=== PATIENT | female | born 1950 | race Caucasian/White ===

== ENCOUNTER 2018-10-18 18:36 | Inpatient (IN) | payer OTHER, MEDICARE ==
[~2018-10-18] VITALS: Ht 162.6 cm; Wt 106.1 kg
[2018-10-18 18:37] VITALS: BP 92/62
[2018-10-18] MEDS ORDERED: HYDROCHLOROTHIA25 M1 PO (18:42)
[2018-10-18] MEDS ORDERED: LISINOPRIL10 MG PO (18:42)
[2018-10-18] MEDS ORDERED: COZAAR 25 MG TA25 M1 PO (18:42)
[2018-10-18] MEDS ORDERED: SIMVASTATIN40 MG PO (18:42)
[2018-10-18 20:01] LABS: ABSOLUTE NEUTROPHILS 10.9 thou/uL (1.4-8.2); BASOPHILS 0.5 % (0.0-2.0); EOSINOPHILS 0.5 % (0.0-3.0); HEMATOCRIT 43.5 % (37.0-47.0); HEMOGLOBIN 14.6 gm/dL (12.0-15.0); LYMPHOCYTES 6.2 % (24.0-44.0); MCH 28.4 pg (26.0-34.0); MCHC 33.5 g/dL (28.0-37.0); MCV 84.8 fL (80.0-100.0); MONOCYTES 4.4 % (1.0-8.0); PLATELET COUNT 195 thou/uL (150-400); POLYS 88.4 % (36.0-66.0); RBC 5.13 mil/uL (4.20-5.00); RDW 14.8 % (10.5-14.5); WBC 12.3 thou/uL (4.0-11.0)
[2018-10-18 20:08] LABS: CALCIUM 9.3 mg/dL (8.5-10.1); CREATININE 0.9 mg/dL (0.6-1.0)
[2018-10-18 20:18] LABS: ALBUMIN 3.4 g/dL (3.4-5.0); TOTAL BILIRUBIN 0.4 mg/dL (<0.1-1.0); TOTAL PROTEIN 7.4 g/dL (6.4-8.2)
[2018-10-18 20:22] LABS: TROPONIN-I 3.01 ng/mL (<0.06)
[2018-10-19 00:25] VITALS: BP 138/81
[2018-10-19] MEDS ORDERED: COZAAR 25 MG TA25 M2 PO (02:07)
[2018-10-19] MEDS ORDERED: METOPROLOL SUC100 MG PO (02:09)
[2018-10-19] MEDS ORDERED: VITAMIN D31000 UNI2 PO (02:10)
[2018-10-19] MEDS ORDERED: CENTRUM SILVER1 EAC4 PO (02:13)
[2018-10-19 02:35] LABS: HEMATOCRIT 40.4 % (37.0-47.0); HEMOGLOBIN 13.5 gm/dL (12.0-15.0); MCH 28.1 pg (26.0-34.0); MCHC 33.3 g/dL (28.0-37.0); MCV 84.4 fL (80.0-100.0); RBC 4.79 mil/uL (4.20-5.00); RDW 14.7 % (10.5-14.5); WBC 10.7 thou/uL (4.0-11.0)
[2018-10-19 02:42] LABS: CALCIUM 8.8 mg/dL (8.5-10.1); CREATININE 0.9 mg/dL (0.6-1.0); MAGNESIUM 1.7 mg/dL (1.8-2.4); POTASSIUM 3.6 mmol/L (3.5-5.1)
[2018-10-19 04:09] VITALS: BP 130/76
--- NOTE | 2018-10-19 05:34 | NUR ---
ASSUMED CARE OF PATIENT FROM ER. PATIENT ABLE TO ANSWER ALL ORIENTATION QUESTIONS APPROPRIATELY. REMAINS NPO. EDUCATION GIVEN REGARDING CHEST PAIN AND ALERTING NURSING STAFF FOR NEW SIGNS/SYMPTOMS. NO DISTRESS NOTED. POC GOALS ESTABLISHED.
[2018-10-19 07:21] VITALS: BP 110/63
[2018-10-19 08:26] LABS: BE(vivo) 1.6 mmol/L (-2 to +3); HCO3 26.2 mmol/L (22.0-26.0); PCO2 41.3 mmHg (35.0-45.0); PO2 68.3 mmHg (80.0-100.0); pH 7.421 (7.360-7.450)
--- NOTE | 2018-10-19 08:48 | HC ---
[facility] [place] [address] [place] [address] CONSULTATION Name: JESSICA MARSH Room #: 364-P ADM IN M.R.#: [id number] Admission: 10/18/18 ������������������ Attend Phys: Nate Hopkins MD Discharge: ������������������ Date of : 50 Report #: [id number] THIS REPORT FOR: //name// CC: Nate Longoria MD SURGEON: Lopez Green MD REASON FOR CONSULTATION: Postoperative followup. HISTORY OF PRESENT ILLNESS: The patient is a 68-year-old female who underwent a nasal septoplasty, bilateral inferior turbinectomy, and transendoscopic sphenopalatine artery cauterization for control of chronic epistaxis, deviated septum, and nasal obstruction. The patient had been followed for this for several weeks despite aggressive treatment, both by Dr. Longoria, her primary care physician, and myself. This had persisted. Because of her persistent deviated septum, options of surgery were discussed. The patient moved to [place] from [place] 12 years ago. She had required cauterization in [place] at that time. The patient had uncomplicated surgery in the recovery room, she was noted to have difficulty holding her oxygen saturation. Dr. Rogers, the anesthesiologist had called me after my departure from the surgery center, while she was still in recovery room, stating that he was concerned with her desaturation off of oxygen. In discussion, he and I agreed that this should be further evaluated and the patient was referred to the Emergency Department at [facility]. She is currently in the Emergency Room, undergoing workup. I have talked with Rosita, her nurse practitioner. Our concern were the possibility of an early congestive heart failure. Just while talking, the patient was noted to have an elevated NT-ProBNP of 372, greater than its normal reference rate of 300. Recommendations have been made for admission via the Internal Medicine service and cardiac consultation. I have talked with the patient on the telephone. She is asymptomatic with no chest pain and no significant shortness of breath, but continues to desaturate off oxygen. 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 [address] [address] CONSULTATION Name: JESSICA MARSH Room #: 364-P ADM IN M.R.#: [id number] Admission: 10/18/18 ������������������ Attend Phys: Nate Hopkins MD Discharge: ������������������ Date of : 50 Report #: [id number] MEDICATIONS: Included mupirocin nasal ointment b.i.d., losartan 100 mg daily, hydrochlorothiazide 25 mg daily, vitamin D3, simvastatin 40 mg a day, Metamucil, Refresh Tears, multivitamin. The patient has been placed on amoxicillin 500 mg t.i.d. postoperatively as well as Phenergan suppository 25 mg p.r.n. for nausea and hydrocodone/acetaminophen 7.5/325 one to two q. 4-6 hours p.r.n. ALLERGIES: None. SOCIAL HISTORY: She is with supportive family. Alcohol use, she drinks liquor 6 times per year, having 1-6 drinks per occasion. She does not use caffeine. She has no illicit drug use. She is a former smoker, starting smoking in 1966, at age 16, quitting in 1980 at age 30. She no longer smokes. FAMILY HISTORY: Cancer, CVA, diabetes, and chronic lung disease. PHYSICAL EXAMINATION: VITAL SIGNS: In the Emergency Department showed a temperature of 97.9, pulse of 84, blood pressure 92/62, O2 sat is 96% on 2 liters oxygen, and respiration of 16. She is 220 pounds, 64 inches with a BMI of 37.76. HEENT: Normocephalic. Pupils equal, round, reactive to light. Nasal exam, postoperative changes of the nose. This evaluation was done in the immediate postoperative phase in the surgery center. No active bleeding. Oral cavity normal. NECK: Without adenopathy. NEUROLOGIC: Cranial nerves II through XII otherwise intact. LABORATORY DATA: I reviewed her testing that is available in this early Emergency Room evaluation, white count of 12,300 after IV steroids for surgery and hemoglobin of 14.6. Serum electrolytes are unremarkable, slightly elevated glucose of 108 and SGPT of 27. The patient's NT-proBNP was 372. Chest x-ray showed perihilar interstitial infiltrates, edema versus atypical infection. Normal heart size. ASSESSMENT: Postoperative hypoxemia. Differential diagnosis to include early congestive heart failure versus pneumonia versus aspiration. PLAN: Agree with plan for admission and further workup with elevated troponin, cardiac consultation. I have discussed the findings with the patient and her via telephone in the Emergency Department. I have discussed this with her nurse practitioner, Rosita in the Emergency Department. My partner, Dr. Ochoa will be on over the weekend and I have discussed her transfer to the Emergency Room with him. We will plan to follow along with you. ��������������������������������������������� <ELECTRONICALLY SIGNED> ���������������������������������������� By: Lopez Green MD ��������������������������������������������� 10/19/18 0848 34 0833 Lopez Green MD /nt
[2018-10-19 15:34] VITALS: BP 119/65
--- NOTE | 2018-10-19 15:41 | 2DMMODE ---
[facility] [address] [place] [address] 2 D/M-MODE ECHOCARDIOGRAM Name: JESSICA MARSH Room #: 364-P ADM IN M.R.#: [id number] ������������� Admission: 10/18/18 ������������� Attend Phys: Nate Hopkins MD Discharge: ��� ������������� ��� Date of : 50 Date of Service: 10/19/18 1541 �� Report #: [id number] �������� ��������������������������������������������[id number] THIS REPORT FOR: //name// APPROVED REPORT Study performed: 10/19/2018 11:03:53 EXAM: Comprehensive 2D, Doppler, and color-flow Echocardiogram Patient Location: Bedside Room #: 364 Status: on-call BSA: 2.09 HR: 88 bpm BP: 110/63 mmHg Rhythm: NSR Other Information Study Quality: Adequate Risk Factors: Cardiac Risk Factors: HTN, Hyperlipidemia Indications Syncope 2D Dimensions IVSd: 11.04 (7-11mm) LVOT Diam: 19.00 (18-24mm) LVDd: 48.06 mm PWd: 11.09 (7-11mm) Ascending Ao: 31.97 (22-36mm) LVDs: 34.76 (25-40mm) Aortic Root: 27.03 mm LV Single Plane 4CH: 56.37 % LV Single Plane 2CH: 55.05 % Biplane EF: 55.3 % Volumes Left Atrial Volume (Systole) Single Plane 4CH: 31.11 mL Single Plane 2CH: 33.95 mL LA ESV Index: 17.00 mL/m2 Aortic Valve AoV Peak Rasta.: 1.52 m/s AO Peak Gr.: 9.19 mmHg LVOT Max P.75 mmHg LVOT Max V: 1.09 m/s QUEENIE Vmax: 2.[address] [facility] [address] [address] 2 D/M-MODE ECHOCARDIOGRAM Name: JESSICA MARSH Room #: [facility] ADM IN .R.#: [id number] ������������� Admission: 10/18/18 ������������� Attend Phys: Nate Hopkins MD Discharge: ��� ������������� ��� Date of : 50 Date of Service: 10/19/18 1541 �� Report #: [id number] �������� ��������������������������������������������[id number] AI Vmax: 3.19 m/s AI Charles: 2.15 m/s2 AI PHT: 430.97 ms Mitral Valve E/A Ratio: 0.8 MV Decel. Time: 223.86 ms MV E Max Rasta.: 0.91 m/s MV A Rasta.: 1.10 m/s MV PHT: 64.92 ms IVRT: 86.51 ms TDI E/Lateral E': 13.00 E/Medial E': 9.10 Medial E' Rasta.: 0.10 m/s Lateral E' Rasta.: 0.07 m/s Pulmonary Valve PV Peak Rasta.: 0.94 m/s PV Peak Gr.: 3.53 mmHg Pulmonary Vein P Vein S: 0.65 m/s P Vein A: 0.29 m/s P Vein D: 0.43 m/s P Vein A Dur.: 83.0 msec P Vein S/D Ratio: 1.51 Tricuspid Valve RAP Estimate: 7.00 mmHg Left Ventricle The left ventricle is normal size. There is normal LV segmental wall motion. Borderline concentric left ventricular hypertrophy. Left ventricular systolic function is normal. The left ventricular ejection fraction is within the normal range. LVEF is 55-60%. Mild diastolic dysfunction is present (impaired relaxation pattern). Right Ventricle The right ventricle is normal size. The right ventricular systolic function is normal. Atria The left atrium size is normal. The right atrium size is normal. Aortic Valve The aortic valve is normal in structure. Mild aortic regurgitation. [facility] [address] [place] [address] 2 D/M-MODE ECHOCARDIOGRAM Name: JESSICA MARSH Room #: 364-P ADM IN M.R.#: [id number] ������������� Admission: 10/18/18 ������������� Attend Phys: Nate Hopkins MD Discharge: ��� ������������� ��� Date of : 50 Date of Service: 10/19/18 1541 �� Report #: [id number] �������� ��������������������������������������������[id number] There is no aortic valvular stenosis. Mitral Valve The mitral valve is normal in structure. Mild to moderate mitral regurgitation. No evidence of mitral valve stenosis. Tricuspid Valve The tricuspid valve is normal in structure. There is no tricuspid valve regurgitation noted. Pulmonic Valve The pulmonary valve is normal in structure. There is no pulmonic valvular regurgitation. Great Vessels The aortic root is normal in size. IVC is normal in size and collapses >50% with inspiration. Pericardium There is no pericardial effusion. <Conclusion> The left ventricle is normal size. LVEF is 55-60%. The aortic valve is normal in structure. Mild aortic regurgitation. The mitral valve is normal in structure. Mild to moderate mitral regurgitation. The tricuspid valve is normal in structure. The pulmonary valve is normal in structure. There is no pericardial effusion. ��������������������������������������������� <ELECTRONICALLY SIGNED> ���������������������������������������� By: Saul Veras MD ��������������������������������������������� 10/19/18 1541 1541 1541 Saul Veras MD /INF
--- NOTE | 2018-10-19 17:57 | NUR ---
ASSUMED PATIENT CARE AT 0700. A/O X4. CONFUSED SOMETIMES. UP WITH ASSISTED TO BATHROOM. NO COUGHT, VSS. SLOWLY TOWARDS POC GOALS.
[2018-10-19 19:10] VITALS: BP 102/54
[2018-10-20 04:18] VITALS: BP 134/69
--- NOTE | 2018-10-20 07:21 | NUR ---
RECEIVED REPORT AND ASSUMED PATIENT CARE AT 1900. PATIENT AAOX4 AND ON ROOM AIR. PATIENT NOTED TO HAVE DRIED BLOOD AROUND THE NOSTRILS. PATIENT AMBULATES WELL INDEPENDENTLY. HOURLY ROUNDING COMPLETED AND ASSESSMENTS CHARTED. NO ACUTE EVENTS OCCURRED DURING THIS SHIFT AND VS REMAINED STABLE.
[2018-10-20 07:27] VITALS: BP 134/82
[2018-10-20 12:09] VITALS: BP 162/97; BP 167/92
[2018-10-20 16:00] VITALS: BP 142/81
[2018-10-20 16:08] VITALS: BP 170/91
--- NOTE | 2018-10-20 18:35 | NUR ---
ASSUMED PATIENT CARE AT 0700.A/0 X4. NO NOSE BLEEDING NOTED. AMBULATED IN HALLWAY. WILL NPO AFTER MIDNIGHT TO HAVE HEART CATH IN AN. DENIES CHEST PAIN. PRIGRESSING TOWARDS POC GOALS.
--- NOTE | 2018-10-20 18:37 | EKG ---
[place] [address] [facility] [place] [address] ELECTROCARDIOGRAM REPORT Name: JESSICA AMRSH Room #: 364-P ADM IN M.R.#: [id number] ������������������ Admission: 10/18/18 ������������������ Attend Phys: Nate Hopkins MD Discharge: ������������������ Date of : 50 Report #: [id number] ����������������������������������������������������������������� [id number] THIS REPORT FOR: //name// [facility] ED Test Date: 2018-10-18 Test Time: 18:53:20 Pat Name: JESSICA MARSH Department: Patient ID: SJOMO- Room: Gender: F Relationship Banker: : 1950 Requested By: Adelfo Laurent Order Number: [id number] MD: Saul Veras Measurements Intervals [place] Rate: 80 P: 59 UT: 170 QRS: 18 QRSD: 92 T: 21 QT: 378 QTc: 436 Interpretive Statements Sinus rhythm left atrial enlargement Low voltage, precordial leads Nonspecific ST-T wave abnormalities No previous ECG available for comparison Electronically Signed On 10-20-2018 18:37:28 CDT by Saul Veras [email or web address] ��������������������������������������������� <ELECTRONICALLY SIGNED> ���������������������������������������� By: Saul Veras MD ��������������������������������������������� 10/20/18 1837 1853 1853 Saul Veras MD /JULES
[2018-10-20 19:35] VITALS: BP 139/69
[2018-10-21] VITALS (7 sets, daily range): BP systolic 138–158; BP diastolic 79–102
--- NOTE | 2018-10-21 07:22 | NUR ---
PT MAKING PROGRESS TOWARDS GOALS. PT REPORTS SOME POST NASAL DRIP AND SMALL AMOUNTS OF DRAINAGE FROM HER NOSE. DENIES ANY NOTED BLEEDING FROM HER NOSE/SINUSES. NOTED AND PT AWARE OF NPO ORDER FOR AFTER SCHOOL COORDINATOR.
--- NOTE | 2018-10-21 08:38 | EKG ---
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: WG : 1950 Requested By: Eleno Aguayo Order Number: [id number] MD: Jerad Dykes Measurements Intervals [place] Rate: 79 P: 51 FL: 166 QRS: 14 QRSD: 93 T: 15 QT: 391 QTc: 449 Interpretive Statements Sinus rhythm Nonspecific ST segment abnormality No previous ECG available for comparison Electronically Signed On 10-21-2018 8:37:48 CDT by Jerad Dykes [email or web address] ��������������������������������������������� <ELECTRONICALLY SIGNED> ���������������������������������������� By: Jerad Dykes MD, [facility] ��������������������������������������������� 10/21/18 0837 2315 2315 Jerad Dykes MD, FACC /EPI
--- NOTE | 2018-10-21 11:22 | NUR ---
Nutrition: pt admitted with nose bleed, acute respiratory failure following deviated septum repair on 10/18. Received consult, no reason stated. Pt has been NPO/full liquids x 3 days over admit. NPO today for cardiac cath. Troponin elevated. 100% of meals is documented. Usual intake is good. Does have hx of HTN, HLD and iliac artery stent. Stable weights and current BMI 40, extreme class 3 obesity. Address education needs as desired closer to D/C.
[2018-10-21] MEDS ORDERED: AUGMENTIN 875-1 EACH PO (17:02)
[2018-10-21] MEDS ORDERED: OXYMETAZOLINE 0.05% NASAL (17:02)
[2018-10-21] MEDS ORDERED: DEEP SEA NASAL44 M1 NASAL (17:02)
[2018-10-21] MEDS ORDERED: ACETAMINOPHEN325 M1 PO (17:02)
[2018-10-21] MEDS ORDERED: MUPIROCIN22 GM NASAL (17:02)
--- NOTE | 2018-10-21 17:59 | NUR ---
ASSUMED PATIENT CARE AT 0700. A/O X4. DENIES CHEST PAIN. TOLERLTAED HEART CATH. NO BLEEDING NOTED RIGHT GROINE, VSS.AMBULATED AFTER CATH. DC TO HOME NOW.
--- NOTE | 2018-10-22 08:36 | EKG ---
[place] [address] [facility] [place] [address] ELECTROCARDIOGRAM REPORT Name: JESSICA MARSH Room #: 364-P DIS IN M.R.#: [id number] ������������������ Admission: 10/18/18 ������������������ Attend Phys: Naet Hopkins MD Discharge: 10/21/18 ������������������ Date of : 50 Report #: [id number] ����������������������������������������������������������������� [id number] THIS REPORT FOR: //name// [facility] Test Date: 2018-10-21 Test Time: 09:58:16 Pat Name: JESSICA MARSH Department: Room: 364 P Gender: F Director Volunteer Services: Wendy ABDUL : 1950 Requested By: Alma Kim Order Number: [id number] MD: Jerad Dykes Measurements Intervals [place] Rate: 89 P: 60 [place]: 168 QRS: 40 QRSD: 90 T: 33 QT: 383 QTc: 467 Interpretive Statements Sinus rhythm RSR' in V1 or V2, right VCD Compared to ECG 10/18/2018 23:15:03 no significant change was found Electronically Signed On 10-22-2018 8:36:08 CDT by Jerad Dykes [email or web address] ��������������������������������������������� <ELECTRONICALLY SIGNED> ���������������������������������������� By: Jerad Dykes MD, [facility] ��������������������������������������������� 10/22/18 0836 0958 0958 Jerad Dykes MD, [facility] /EPI
--- NOTE | 2018-10-22 16:12 | CATHLAB ---
[facility] [address] [place] [address] INVASIVE PROCEDURE REPORT Name: JESSICA MARSH Room #: 364-P DIS IN M.R.#: [id number] ������������� Admission: 10/18/18 ������������� Attend Phys: Nate Hopkins MD Discharge: ��� 10/21/18 ������������� ��� Date of : 50 Date of Service: 10/22/18 1612 �� Report #: [id number] �������� ��������������������������������������������[id number] THIS REPORT FOR: //name// APPROVED REPORT Study performed: 10/21/2018 12:22:50 Patient Details Patient Status: In-Patient Room #: 364 The patient is a 68 year-old female Event Personnel Saul Veras Quality Control Coordinator, Elisabeth Adan RN, Josselin Light RTR, BIOTECH PRODUCTION SPECIALIST Monitor, Santiago Espinoza RTR Scrub Procedures Performed Art Access - R femoral artery* Left Heart Cath w/or w/o Coronaries [id number] [facility] [address] Initial Mod Sed Same Phys/QHP Gr5y 243023 Hemostasis with Manual pressure 10773 Mod Sed Same Phys/QHP Ea 375491 supervision of conscious sedation Indication Chest pain, Elevated troponin Procedure Narrative The Right Groin^ was infiltrated with 1% Lidocaine subcutaneous anesthesia. A PINNACLE 4FR Sheath #[id number] sheath was inserted into the RFA^. Coronary angiography was performed using coronary diagnostic catheters. The right coronary system was accessed and visualized with a 4FR 3DRC #[id number] catheter. The left coronary system was accessed and visualized with a 4FR JL 5.0 #[id number] catheter. The left ventricle was accessed and visualized with a angled pigtail catheter. Left ventricular/Aortic Valve gradient assessed via catheter pullback. Left ventriculogram was performed in 30 degree projection. Hemostasis was obtained with manual pressure following sheath removal without any complications. There was no hematoma. Intraoperative Conscious Sedation Sedation start time: 12:26 Case end Time: 13:10 Versed 3 mg Fluoro Time: 5.60 minutes [facility] [place] [address] [place] [address] INVASIVE PROCEDURE REPORT Name: JESSICA MARSH Room #: 364-P DIS IN M.R.#: [id number] ������������� Admission: 10/18/18 ������������� Attend Phys: Nate Hopkins MD Discharge: ��� 10/21/18 ������������� ��� Date of : 50 Date of Service: 10/22/18 1612 �� Report #: [id number] �������� ��������������������������������������������[id number] Dose: DAP 9469.00 cGycm2 1683 mGy Contrast Type and Amount: Omnipaque 100 ml Diagnostic Cath Left Main Moderate caliber vessel of normal origin bifurcates left anterior descending left circumflex. Is quite short and nearly non-existent. LAD Monitor large-caliber type II vessel which courses in the anterior interventricular sulcus. His torches and his course giving rise to small to moderate caliber diagonal branches. Is free of high-grade disease Diagonal 1 Wall caliber vessel coursing along the anterolateral wall of the left ventricle free of high-grade disease. Circumflex Moderate caliber vessel with an early bifurcation to a monitor large first marginal branch for the circumflex then continues posteriorly giving rise to small posterior wall branch. The circumflex proper is free of high-grade disease OM1 Moderate caliber vessel which has a proximal horseshoe deformity in its course. It is free of high-grade disease as it courses along the lateral aspect left ventricle free of high-grade stenosis bifurcating at its terminal portion Right Coronary Large-caliber dominant vessel of normal origin proceeds posteriorly. He gives rise to posterior descending artery and large posterolateral branch. There is mild irregularities proximally in the RCA but no significant high-grade lesions are noted R PDA Small caliber free of high-grade lesions RPLV Monitor large-caliber vessel coursing around the lateral posterior aspect ventricle terminating as a bifurcating vessel free of high-grade disease Left Ventriculography Left Ventriculography was not performed. Hemodynamics The aortic pressure is 120/59 mmHg with a mean of 89 mmHg. The left ventricular pressure is 124/17 mmHg with a mean of mmHg. The left ventricular end diastolic pressure is 32 mmHg. Conclusion 1. Coronary artery disease with luminal irregularities present 2. Normal hemodynamics [facility] [address] [place] [address] INVASIVE PROCEDURE REPORT Name: JESSICA MARSH Room #: 364-P DIS IN M.R.#: [id number] ������������� Admission: 10/18/18 ������������� Attend Phys: Nate Hopkins MD Discharge: ��� 10/21/18 ������������� ��� Date of : 50 Date of Service: 10/22/18 1612 �� Report #: [id number] �������� ��������������������������������������������[id number] Recommendations Cardiac Risk Reduction Program ��������������������������������������������� <ELECTRONICALLY SIGNED> ���������������������������������������� By: Saul Veras MD ��������������������������������������������� 10/22/181611 11 11 Saul Veras MD /INF
== END 2018-10-21 18:00 | disposition home or self-care (01) | DRG 177 ==
LOC: ER 18:36 → 3W 21:25 → EROBS 21:25 → 3W 10-19 00:15
PROVIDERS: Nurse Practitioner Acute Care; Physician Assistant; ADMIT Internal Medicine
PROC: 5A09357 Assistance with Respiratory Ventilation, Less than 24 Consecutive Hours, Continuous Positive Airway Pressure (ICD-10-PCS; principal; 2018-10-19)
PROC: B2111ZZ Fluoroscopy of Multiple Coronary Arteries using Low Osmolar Contrast (ICD-10-PCS; 2018-10-21)
PROC: 4A023N7 Measurement of Cardiac Sampling and Pressure, Left Heart, Percutaneous Approach (ICD-10-PCS; 2018-10-21)
DX: J69.0 Pneumonitis due to inhalation of food and vomit (principal); I21.4 Non-ST elevation (NSTEMI) myocardial infarction; J96.01 Acute respiratory failure with hypoxia; E78.00 Pure hypercholesterolemia, unspecified; I73.9 Peripheral vascular disease, unspecified; I10 Essential (primary) hypertension; E78.5 Hyperlipidemia, unspecified; Z79.82 Long term (current) use of aspirin; Z90.49 Acquired absence of other specified parts of digestive tract; Z83.3 Family history of diabetes mellitus; Z82.3 Family history of stroke; Z80.8 Family history of malignant neoplasm of other organs or systems; Z83.6 Family history of other diseases of the respiratory system; Z87.891 Personal history of nicotine dependence; Z79.899 Other long term (current) drug therapy; Z95.820 Peripheral vascular angioplasty status with implants and grafts; Z82.49 Family history of ischemic heart disease and other diseases of the circulatory system
CPT/HCPCS: 10879

== ENCOUNTER → 2020-11-30 | Outpatient (CLI) | payer OTHER, MEDICARE ==
[~2020-11-30] MED LIST: ACETAMINOPHEN325 M1 PO; AUGMENTIN 875-1 EACH PO; CENTRUM SILVER1 EAC4 PO; COZAAR 25 MG TA25 M1 PO; COZAAR 25 MG TA25 M2 PO; DEEP SEA NASAL44 M1 NASAL; HYDROCHLOROTHIA25 M1 PO; LISINOPRIL10 MG PO; METOPROLOL SUC100 MG PO; MUPIROCIN22 GM NASAL; OXYMETAZOLINE 0.05% NASAL; SIMVASTATIN40 MG PO; VITAMIN D31000 UNI2 PO
== END ==
LOC: SJCVC 13:10
PROVIDERS: ATTEND Internal Medicine
DX: I10 Essential (primary) hypertension (principal); E78.5 Hyperlipidemia, unspecified; I25.10 Atherosclerotic heart disease of native coronary artery without angina pectoris; Z79.899 Other long term (current) drug therapy; Z72.89 Other problems related to lifestyle